=== PATIENT | female | born 1990 | race Caucasian/White ===

== ENCOUNTER 2017-12-25 11:00 | Emergency (ER) | payer BC ==
[2017-12-25] MEDS ORDERED: BABY ASPIRIN 81 MG CHEW PO ONE (11:26)
--- NOTE | 2017-12-25 11:33 | ERPHSYRPT ---
- History of Present Illness Time Seen by Provider: 12/25/17 11:26 Historian: patient, family Exam Limitations: no limitations Patient Subjective Stated Complaint: pt reports friday she began having left upper back chest pain radiating to her chest-states that pain has been intermittant since then-states at times she feels sob and tingling in her bilateral arms-states that last night she thought it was a panic attack but hasn 't had increased stress-denies n/v/d-reports pain increases with movement Triage Nursing Assessment: pt arrives ambulatory with no difficulty to ed-resp easy and nonlaobred-pink warm and dry-answering all questions correctly-moving all extremities with ease Physician History: The patient is a 27-year-old female with her complaining of an onset of upper left back pain that migrated around to her chest causing chest tightness and shortness of breath on Friday afternoon. She was walking when the pain began. It subsided but has returned intermittently for the last 2 days. When it returns it will go away when she rests. She denies nausea or vomiting. She denies abdominal pain. Sometimes the patient experiences tingling in her hands which she said feels like when your hands go to sleep by raising her arms up in the air for extended periods of time. The pain is not related to eating. She did not become sweaty. She has some concern about the pain being due to her heart because of her family history. She said people on her father's side have early heart attacks in their 30s and 40s. She has no local doctor. She has not had her cholesterol checked. Her past medical history is unremarkable. Timing/Duration: day(s) (3), intermittent, sudden Activities at Onset: activity Quality: tightness Location: central Chest Pain Radiation: back Severity of Pain-Max: mild Severity of Pain-Current: mild Modifying Factors: Improves With: rest Associated Symptoms: No nausea, No vomiting, No abdominal pain, No cough, No diaphoresis, No weakness, No dizziness Prior Chest Pain/Cardiac Workup: no prior chest pain Nitro Today/Relief: no nitro taken today Aspirin Treatment Today: no aspirin today Allergies/Adverse Reactions: No Known Drug Allergies Allergy (Unverified 12/25/17 11:12) Home Medications: No Reportable Medications [No Reported Medications] 12/25/17 [History] Hx Tetanus, Diphtheria Vaccination/Date Given: Yes Hx Influenza Vaccination/Date Given: No Hx Pneumococcal Vaccination/Date Given: No Immunizations Up to Date: Yes - Review of Systems Constitutional: No Fever, No Chills Eyes: No Symptoms Ears, Nose, & Throat: No Symptoms Respiratory: No Cough, No Dyspnea Cardiac: Chest Pain Abdominal/Gastrointestinal: No Abdominal Pain, No Nausea, No Vomiting, No Diarrhea Genitourinary Symptoms: No Dysuria Musculoskeletal: No Back Pain, No Neck Pain Skin: No Rash Neurological: No Dizziness, No Focal Weakness, No Sensory Changes Psychological: No Symptoms Endocrine: No Symptoms Hematologic/Lymphatic: No Symptoms Immunological/Allergic: No Symptoms All Other Systems: Reviewed and Negative - Past Medical History Pertinent Past Medical History: No - Past Surgical History Past Surgical History: Yes - Social History Smoking Status: Current every day smoker How long have you smoked: yrs Exposure to second hand smoke: No Drug Use: none Patient Lives Alone: No - Female History Hx Last Menstrual Period: 2 wks ago Hx Now: No - Nursing Vital Signs Nursing Vital Signs: Initial Vital Signs Temperature 97.5 F 12/25/17 11:04 Pulse Rate 90 12/25/17 11:04 Respiratory Rate 18 12/25/17 11:04 Blood Pressure 142/83 12/25/17 11:04 O2 Sat by Pulse Oximetry 99 12/25/17 11:04 Pain Scale Pain Intensity 1 - Physical Exam General Appearance: no apparent distress, alert Eye Exam: PERRL/EOMI, eyes nml inspection Ears, Nose, Throat Exam: normal ENT inspection, moist mucous membranes Neck Exam: normal inspection, non-tender, supple, full range of motion Respiratory Exam: normal breath sounds, lungs clear, No respiratory distress Cardiovascular Exam: regular rate/rhythm, normal heart sounds Gastrointestinal/Abdomen Exam: tenderness (epigastric) Pelvic Exam: not done Rectal Exam: not done Back Exam: point tenderness (left mid back) Extremity Exam: normal inspection, normal range of motion Neurologic Exam: alert, oriented x 3, cooperative, normal mood/affect, sensation nml, No motor deficits Skin Exam: normal color, warm, dry SpO2 Interpretation: normal SpO2: 99 Oxygen Delivery: Room Air - Course EKG Interpreted by Me: RATE, Sinus Rhythm, NORMAL AXIS, NORMAL INTERVALS, NORMAL QRS, NORMAL ST-T - Radiology Exams Chest X-ray Interpretation: Reviewed by me, Teleradiologist Report, Negative, No Fracture (Per Dr Schaefer) Ordered Tests: Active Orders 24 hr Category Date Time Status Water Resource Project Manager STAT Care 12/25/17 11:28 Active EKG-ER Only STAT Care 12/25/17 11:26 Active IV Insertion STAT Care 12/25/17 11:26 Active Pulse Oximetry (ED) STAT Care 12/25/17 11:26 Active CHEST 2 VIEWS (PA AND LAT) Stat Exams 12/25/17 11:27 Completed CBC W DIFF Stat Lab 12/25/17 11:43 Completed CMP Stat Lab 12/25/17 11:43 Completed D-DIMER QUANTITATION Stat Lab 12/25/17 11:43 Completed HCG QUALITATIVE,SERUM Stat Lab 12/25/17 11:43 Completed NT PRO BNP Stat Lab 12/25/17 11:43 Completed TROPONIN Q3H Lab 12/25/17 11:43 Completed TROPONIN Q3H Lab 12/25/17 14:30 Ordered TROPONIN Q3H Lab 12/25/17 17:30 Ordered TROPONIN Q3H Lab 12/25/17 20:30 Ordered TROPONIN Q3H Lab 12/25/17 23:30 Ordered Medication Summary Discontinued Medications Generic Name Dose Route Start Last Admin Trade Name Freq PRN Reason Stop Dose Admin Aspirin 324 mg 12/25/17 11:26 12/25/17 12:00 Baby Aspirin 81 Mg Chew PO 12/25/17 11:27 324 mg STAT ONE Administration Ketorolac Tromethamine 30 mg 12/25/17 13:08 Toradol 30 Mg Injection IV 12/25/17 13:09 STAT ONE Lab/Rad Data: Laboratory Result Diagrams 12/25/17 11:43 12/25/17 11:43 Laboratory Results 12/25/17 12/25/17 12/25/17 Range/Units 11:43 11:43 11:43 WBC (4.0-10.5) K/mm3 RBC (4.1-5.4) M/mm3 Hgb (12.0-16.0) gm/dl Hct (35-47) % MCV (78-100) fl MCH (26-32) pg MCHC (32-36) g/dl RDW (11.5-14.0) % Plt Count (150-450) K/mm3 MPV (6-9.5) fl Gran % (36.0-66.0) % Eos # (Auto) (0-0.5) Absolute Lymphs (auto) (1.0-4.6) Absolute Monos (auto) (0.0-1.3) Lymphocytes % (24.0-44.0) % Monocytes % (0.0-12.0) % Eosinophils % (0.00-5.0) % Basophils % (0.0-0.4) % Absolute Granulocytes (1.4-6.9) Basophils # (0-0.4) D-Dimer < 215 L (215-500) ng/mL Sodium (137-145) mmol/L Potassium (3.5-5.1) mmol/L Chloride (98-107) mmol/L Carbon Dioxide (22-30) mmol/L Anion Gap (5-15) MEQ/L BUN (7-17) mg/dL Creatinine (0.52-1.04) mg/dL Estimated GFR ML/MIN Glucose (74-106) mg/dL Calcium (8.4-10.2) mg/dL Total Bilirubin (0.2-1.3) mg/dL AST (14-36) U/L ALT (0-35) U/L Alkaline Phosphatase (38-126) U/L Troponin I < 0.012 (0.000-0.034) ng/mL NT-Pro-B Natriuret Pep (0-450) pg/mL Serum Total Protein (6.3-8.2) g/dL Albumin (3.5-5.0) g/dL Serum , Qual NEGATIVE (Negative) 12/25/17 12/25/17 Range/Units 11:43 11:43 WBC 4.9 (4.0-10.5) K/mm3 RBC 4.44 (4.1-5.4) M/mm3 Hgb 13.6 (12.0-16.0) gm/dl Hct 39.9 (35-47) % MCV 89.9 (78-100) fl MCH 30.6 (26-32) pg MCHC 34.1 (32-36) g/dl RDW 13.4 (11.5-14.0) % Plt Count 166 (150-450) K/mm3 MPV 9.9 H (6-9.5) fl Gran % 58.6 (36.0-66.0) % Eos # (Auto) 0.06 (0-0.5) Absolute Lymphs (auto) 1.63 (1.0-4.6) Absolute Monos (auto) 0.32 (0.0-1.3) Lymphocytes % 33.4 (24.0-44.0) % Monocytes % 6.6 (0.0-12.0) % Eosinophils % 1.2 (0.00-5.0) % Basophils % 0.2 (0.0-0.4) % Absolute Granulocytes 2.86 (1.4-6.9) Basophils # 0.01 (0-0.4) D-Dimer (215-500) ng/mL Sodium 143 (137-145) mmol/L Potassium 4.0 (3.5-5.1) mmol/L Chloride 108 H (98-107) mmol/L Carbon Dioxide 26 (22-30) mmol/L Anion Gap 13.5 (5-15) MEQ/L BUN 19 H (7-17) mg/dL Creatinine 0.63 (0.52-1.04) mg/dL Estimated GFR > 60.0 ML/MIN Glucose 80 (74-106) mg/dL Calcium 9.6 (8.4-10.2) mg/dL Total Bilirubin 0.40 (0.2-1.3) mg/dL AST 18 (14-36) U/L ALT 14 (0-35) U/L Alkaline Phosphatase 63 (38-126) U/L Troponin I (0.000-0.034) ng/mL NT-Pro-B Natriuret Pep 38.3 (0-450) pg/mL Serum Total Protein 6.9 (6.3-8.2) g/dL Albumin 4.5 (3.5-5.0) g/dL Serum , Qual (Negative) - Progress Progress: improved Air Movement: good Blood Culture(s) Obtained: No Antibiotics given: No Counseled pt/family regarding: lab results, diagnosis, need for follow-up, rad results - Departure Time of Disposition: 13:11 Departure Disposition: Home Clinical Impression: Chest pain Condition: Stable Critical Care Time: No Referrals: [facility] [NON-STAFF PHY W/O PRIVILEGES] - Additional Instructions: You have intermittent episodes of chest tightness and back pain. Your visit today to the ER did not show any evidence of heart problems. The d-dimer was negative indicating that you do not have evidence for a blood clot in your lungs. You were given Toradol 30 mg IV in the ER. You're also given aspirin 324 mg orally. Based upon your family history, please follow-up with a local primary care physician to further evaluate you. Take Tylenol 1000 mg and ibuprofen 800 mg every 8 hours as needed for pain.
[2017-12-25 11:49] LABS: BASOPHIL % 0.2 % (0.0-0.4); Basophil (Absolute #) 0.01 (0-0.4); Eosinophil % 1.2 % (0.00-5.0); Eosinophil (Absolute #) 0.06 (0-0.5); Granulocyte Absolute (ANC) 2.86 (1.4-6.9); Granulocytes % 58.6 % (36.0-66.0); Hematocrit 39.9 % (35-47); Hemoglobin 13.6 gm/dl (12.0-16.0); Lymphocyte (Absolute #) 1.63 (1.0-4.6); Lymphocytes % 33.4 % (24.0-44.0); Mean Cell Volume 89.9 fl (78-100); Mean Corpuscular Hemoglobin 30.6 pg (26-32); Mean Corpuscular Hgb Concent. 34.1 g/dl (32-36); Mean Platelet Volume 9.9 fl (6-9.5); Monocyte (Absolute #) 0.32 (0.0-1.3); Monocytes % 6.6 % (0.0-12.0); Platelet Count 166 K/mm3 (150-450); Red Blood Count 4.44 M/mm3 (4.1-5.4); Red Cell Distribution Width 13.4 % (11.5-14.0); White Blood Count 4.9 K/mm3 (4.0-10.5)
--- NOTE | 2017-12-25 11:54 | XRAY ---
Indication: Chest tightness. Comparison: None PA/lateral chest demonstrates normal heart and lungs. Bony thorax intact with mild double curvature scoliosis.
[2017-12-25 12:02] LABS: ALBUMIN 4.5 g/dL (3.5-5.0); ALKALINE PHOSPHATASE 63 U/L (38-126); ANION GAP 13.5 MEQ/L (5-15); BLOOD UREA NITROGEN 19 mg/dL (7-17); CHLORIDE 108 mmol/L (98-107); Calcium 9.6 mg/dL (8.4-10.2); Carbon Dioxide 26 mmol/L (22-30); Creatinine 1 0.63 mg/dL (0.52-1.04); Glucose 80 mg/dL (74-106); SGOT/AST 18 U/L (14-36); SGPT/ALT 14 U/L (0-35); SODIUM 143 mmol/L (137-145); Total Protein 6.9 g/dL (6.3-8.2)
[2017-12-25 12:11] LABS: NT PRO BNP 38.3 pg/mL (0-450)
[2017-12-25 12:13] VITALS: BP 120/81; PULSE 86
[2017-12-25] MEDS ORDERED: TORAdol 30 mg Injection IV ONE (13:08)
[2017-12-25 13:14] VITALS: O2SAT 99
== END 2017-12-25 13:35 | disposition home or self-care (01) ==
LOC: ED 11:00
DX: R07.89 Other chest pain (principal); M54.6 Pain in thoracic spine; R20.2 Paresthesia of skin; R10.13 Epigastric pain
CPT/HCPCS: 36000; 36415; 71046; 80053; 83880; 84484; 84703; 85025; 85379; 93005; 93041; 96374; 99284; J1885; A9270-GY